=== PATIENT | male | born 1960 | race Caucasian/White ===

== ENCOUNTER 2022-01-17 21:17 | Inpatient (IN) | payer MEDICAID ==
[~2022-01-17] VITALS: Ht 180.3 cm; Wt 85.0 kg
[~2022-01-17 21:17] MED LIST: GABA-1216 PO
[2022-01-17] MEDS ORDERED: POVIDONE-IODINE 10% 120 ML SOLUTION TP ONE (22:30)
[2022-01-17] MEDS ORDERED: SODIUM CHLORIDE 0.9% 1,000 ML IV ONE (22:30)
[2022-01-17 22:59] LABS: COVID AG,FIA SOURCE NASAL SWAB
[2022-01-17 23:02] LABS: APPEARANCE,URINE CLEAR (CLEAR); BILIRUBIN,URINE NEGATIVE (NEGATIVE); GLUCOSE, URINE (UA) NEGATIVE (NEGATIVE); LEUKOCYTE ESTERASE ,URINE NEGATIVE (NEGATIVE); NITRATE,URINE NEGATIVE (NEGATIVE); OCCULT BLOOD,URINE NEGATIVE (NEGATIVE); PH,URINE 5.5 (5.0-8.0); PROTEIN,URINE TRACE mg/dL (NEGATIVE); SPECIFIC GRAVITIY, URINE 1.018 (1.003-1.030); UROBILINOGEN,URINE <=1.0 mg/dL (<=1.0)
[2022-01-17] MEDS ORDERED: VANCOMYCIN 1GM/WATER(PEG/NADA) 200 ML IV ONE (23:15)
[2022-01-17 23:35] LABS: BASOPHILS % (AUTO) 0.5 % (0.0-2.0); EOSINOPHILS % (AUTO) 0.4 % (1.0-6.0); HEMATOCRIT 38.2 % (41-53); HEMOGLOBIN 12.7 g/dL (13.5-17.5); LYMPHOCYTES # (AUTO) 1.4 K/uL (1.0-4.8); LYMPHOCYTES % (AUTO) 11.5 % (22.0-44.0); MEAN CORPUSCULAR HEMOGLOBIN 31.3 pg (26.0-34.0); MEAN CORPUSCULAR HGB CONC 33.2 G/dL (31.0-37.0); MEAN CORPUSCULAR VOLUME 94 fL (80-100); MONOCYTES # (AUTO) 1.2 K/uL (0.1-1.0); MONOCYTES % (AUTO) 9.3 % (2.0-9.0); NEUTROPHILS # (AUTO) 9.8 K/uL (1.8-7.7); NEUTROPHILS % (AUTO) 78.3 % (40.0-70.0); PLATELET COUNT (AUTO) 138 K/uL (150-450); RED BLOOD CELL COUNT(AUTO) 4.05 MIL/uL (4.50-5.90); RED CELL DISTRIBUTION WIDTH 14.6 % (11.5-14.5)
[2022-01-17 23:42] LABS: ANION GAP 11 mmol/L (8-16); CALCIUM, TOTAL 8.2 mg/dL (8.8-10.5); CARBON DIOXIDE 24 mmol/L (22-29); CHLORIDE 101 mmol/L (98-107); CREATININE 0.58 mg/dL (0.60-1.30); GLUCOSE,RANDOM 113 mg/dL (70-110); POTASSIUM 4.4 mmol/L (3.5-5.1); SODIUM SERUM 136 mmol/L (136-145); UREA NITROGEN, BLOOD 8 mg/dL (7-18)
[2022-01-17 23:43] LABS: GLOMERULAR FILTR. RATE CALC > 60 mL/min (>60)
[2022-01-17 23:48] LABS: ALANINE AMINOTRANSFERASE 27 U/L (12-78); ALBUMIN 3.1 g/dL (3.4-5.0); ALKALINE PHOSPHATASE 111 U/L (46-116); ASPARTATE AMINOTRANSFERASE 36 U/L (15-37); BILIRUBIN,TOTAL 0.4 mg/dL (0.1-1.0); TOTAL PROTEIN, SERUM 7.7 g/dL (6.4-8.2)
[2022-01-17 23:49] LABS: PROTHROMBIN TIME 10.5 SEC (9.4-11.6)
[2022-01-17 23:53] LABS: LACTIC ACID 2.1 mmol/L (0.4-2.0)
[2022-01-18] MEDS ORDERED: ONDANSETRON HCL 4 MG/2 ML VIAL IVP PRN
[2022-01-18] MEDS: CefTRIAXone 1 GM/DEXTROSE 50 ML IV SCH (00:17)
[2022-01-18] MEDS: HYDROCODONE/ACETAMINOPHEN 5-325 MG TABLET PO PRN ×2 (00:17→05:24)
[2022-01-18] MEDS: RINGERS SOLUTION,LACTATED 1,000 ML IV SCH ×3 (00:18→20:11)
[2022-01-18] MEDS: HEPARIN SODIUM,PORCINE 5,000 UNITS/ML VIAL SQ SCH ×3 (00:18→17:13)
[2022-01-18 00:27] LABS: D-DIMER 0.35 mg/L FEU (0.00-0.50)
[2022-01-18] MEDS ORDERED: SODIUM CHLORIDE 0.9% 500 ML IV ONE (05:30)
[2022-01-18] MEDS ORDERED: VANCOMYCIN HCL 1.25 GM in DEXTROSE 5%-WATER 250 ML IV SCH ×5 (05:30→08:00)
[2022-01-18 05:44] VITALS: BP 127/68
[2022-01-18] MEDS: MORPHINE SULFATE 4 MG/ML SYRINGE IVP PRN (06:55)
[2022-01-18] MEDS ORDERED: IOHEXOL 350 MG/ML 100 ML VIAL ONE (07:21)
[2022-01-18] MEDS ORDERED: SODIUM CHLORIDE 0.9% 100 ML ONE (07:21)
[2022-01-18 08:48] LABS: ANION GAP 12 mmol/L (8-16); CALCIUM, TOTAL 7.9 mg/dL (8.8-10.5); CARBON DIOXIDE 22 mmol/L (22-29); CHLORIDE 102 mmol/L (98-107); CREATININE 0.53 mg/dL (0.60-1.30); GLOMERULAR FILTR. RATE CALC > 60 mL/min (>60); GLUCOSE,RANDOM 86 mg/dL (70-110); POTASSIUM 3.9 mmol/L (3.5-5.1); SODIUM SERUM 136 mmol/L (136-145); UREA NITROGEN, BLOOD 6 mg/dL (7-18)
[2022-01-18] MEDS ORDERED: GABAPENTIN 100 MG CAPSULE PO SCH (09:00)
[2022-01-18] MEDS: VANCOMYCIN HCL 1.25 GM in DEXTROSE 5%-WATER 250 ML IV SCH ×2 (09:55→17:13)
[2022-01-18] MEDS: GABAPENTIN 100 MG CAPSULE PO SCH ×3 (09:56→20:05)
[2022-01-18 11:07] LABS: BASOPHILS % (AUTO) 0.6 % (0.0-2.0); EOSINOPHILS % (AUTO) 0.4 % (1.0-6.0); HEMATOCRIT 33.6 % (41-53); HEMOGLOBIN 11.3 g/dL (13.5-17.5); LYMPHOCYTES % (AUTO) 18.7 % (22.0-44.0); MEAN CORPUSCULAR HGB CONC 33.6 G/dL (31.0-37.0); MEAN CORPUSCULAR VOLUME 95 fL (80-100); MONOCYTES # (AUTO) 1.6 K/uL (0.1-1.0); NEUTROPHILS # (AUTO) 7.1 K/uL (1.8-7.7); NEUTROPHILS % (AUTO) 65.3 % (40.0-70.0); PLATELET COUNT (AUTO) 122 K/uL (150-450); RED BLOOD CELL COUNT(AUTO) 3.52 MIL/uL (4.50-5.90); RED CELL DISTRIBUTION WIDTH 14.9 % (11.5-14.5)
[2022-01-18 11:49] VITALS: BP 127/64
[2022-01-18] MEDS: ASPIRIN 81 MG CHEWABLE TABLET PO SCH (12:06)
[2022-01-18] MEDS: ATORVASTATIN CALCIUM 20 MG TABLET PO SCH (12:06)
[2022-01-18 16:06] VITALS: BP 113/73
[2022-01-18 19:57] VITALS: BP 149/72
[2022-01-18] MEDS: ACETAMINOPHEN 325 MG TABLET PO PRN (20:05)
[2022-01-19] MEDS: HEPARIN SODIUM,PORCINE 5,000 UNITS/ML VIAL SQ SCH ×3 (00:03→16:13)
[2022-01-19] MEDS: CefTRIAXone 1 GM/DEXTROSE 50 ML IV SCH (00:03)
[2022-01-19] MEDS: ACETAMINOPHEN 325 MG TABLET PO PRN (00:03)
[2022-01-19 00:11] VITALS: BP 118/82
[2022-01-19] MEDS: HYDROCODONE/ACETAMINOPHEN 5-325 MG TABLET PO PRN ×4 (00:14→20:24)
[2022-01-19] MEDS: VANCOMYCIN HCL 1.25 GM in DEXTROSE 5%-WATER 250 ML IV SCH ×3 (00:35→16:12)
[2022-01-19 04:02] VITALS: BP 152/78
[2022-01-19 06:35] LABS: VANCOMYCIN,RANDOM 18.3 mcg/mL (25.0-50.0)
[2022-01-19 07:11] VITALS: BP 132/84
[2022-01-19 07:48] LABS: ANION GAP 7 mmol/L (8-16); CARBON DIOXIDE 28 mmol/L (22-29); CHLORIDE 99 mmol/L (98-107); CREATININE 0.71 mg/dL (0.60-1.30); GLUCOSE,RANDOM 99 mg/dL (70-110); POTASSIUM 3.4 mmol/L (3.5-5.1); SODIUM SERUM 134 mmol/L (136-145); UREA NITROGEN, BLOOD 5 mg/dL (7-18)
[2022-01-19 07:52] LABS: GLOMERULAR FILTR. RATE CALC > 60 mL/min (>60)
[2022-01-19] MEDS: ATORVASTATIN CALCIUM 20 MG TABLET PO SCH (08:45)
[2022-01-19] MEDS: GABAPENTIN 100 MG CAPSULE PO SCH ×3 (08:45→20:24)
[2022-01-19] MEDS: ASPIRIN 81 MG CHEWABLE TABLET PO SCH (08:45)
[2022-01-19] MEDS: RINGERS SOLUTION,LACTATED 1,000 ML IV SCH (08:47)
[2022-01-19] MEDS ORDERED: POTASSIUM CHLORIDE 20 MEQ ER TABLET PO PRN (11:00)
[2022-01-19] MEDS ORDERED: POTASSIUM CHL 10 MEQ/WATER 50 ML IV PRN (11:00)
[2022-01-19 11:52] VITALS: BP 145/88
[2022-01-19] MEDS: SILVER SULFADIAZINE 1% 25 GM CREAM TP SCH (12:09)
[2022-01-19] MEDS: NYSTATIN 30 GM CREAM TP SCH (12:09)
[2022-01-19] MEDS: MORPHINE SULFATE 4 MG/ML SYRINGE IVP PRN (12:09)
[2022-01-19 15:57] VITALS: BP 132/80
[2022-01-19 19:22] VITALS: BP 141/82
[2022-01-20 00:13] VITALS: BP 145/93
[2022-01-20] MEDS: CefTRIAXone 1 GM/DEXTROSE 50 ML IV SCH ×2 (00:30→23:59)
[2022-01-20] MEDS: HEPARIN SODIUM,PORCINE 5,000 UNITS/ML VIAL SQ SCH ×3 (00:31→16:02)
[2022-01-20] MEDS: VANCOMYCIN HCL 1.25 GM in DEXTROSE 5%-WATER 250 ML IV SCH ×3 (01:18→16:02)
[2022-01-20] MEDS: RINGERS SOLUTION,LACTATED 1,000 ML IV SCH ×3 (03:56→17:00)
[2022-01-20 04:56] VITALS: BP 151/94
[2022-01-20 07:10] LABS: ANION GAP 8 mmol/L (8-16); CALCIUM, TOTAL 8.3 mg/dL (8.8-10.5); CARBON DIOXIDE 25 mmol/L (22-29); CHLORIDE 100 mmol/L (98-107); CREATININE 0.65 mg/dL (0.60-1.30); GLUCOSE,RANDOM 97 mg/dL (70-110); POTASSIUM 3.6 mmol/L (3.5-5.1); SODIUM SERUM 133 mmol/L (136-145); UREA NITROGEN, BLOOD 5 mg/dL (7-18)
[2022-01-20 07:43] LABS: GLOMERULAR FILTR. RATE CALC > 60 mL/min (>60)
[2022-01-20 08:02] VITALS: BP 163/87
[2022-01-20] MEDS: HYDROCODONE/ACETAMINOPHEN 5-325 MG TABLET PO PRN ×3 (08:38→20:00)
[2022-01-20] MEDS: ATORVASTATIN CALCIUM 20 MG TABLET PO SCH (09:33)
[2022-01-20] MEDS: ASPIRIN 81 MG CHEWABLE TABLET PO SCH (09:33)
[2022-01-20] MEDS: GABAPENTIN 100 MG CAPSULE PO SCH ×3 (09:33→20:00)
[2022-01-20 11:06] VITALS: BP 147/85
[2022-01-20] MEDS: NYSTATIN 30 GM CREAM TP SCH (15:16)
[2022-01-20] MEDS: SILVER SULFADIAZINE 1% 25 GM CREAM TP SCH (15:16)
[2022-01-20 15:26] VITALS: BP 160/86
[2022-01-20] MEDS ORDERED: HYDROCODONE/ACETAMINOPHEN 5-325 MG TABLET PO ONE (16:00)
[2022-01-20 20:00] VITALS: BP 138/79
[2022-01-21] VITALS: BP 160/85
[2022-01-21] MEDS: VANCOMYCIN HCL 1.25 GM in DEXTROSE 5%-WATER 250 ML IV SCH ×3 (00:41→15:58)
[2022-01-21] MEDS: RINGERS SOLUTION,LACTATED 1,000 ML IV SCH (02:30)
[2022-01-21] MEDS: HYDROCODONE/ACETAMINOPHEN 5-325 MG TABLET PO PRN ×4 (02:41→23:38)
[2022-01-21 04:00] VITALS: BP 151/92
[2022-01-21 06:32] LABS: ANION GAP 7 mmol/L (8-16); CALCIUM, TOTAL 8.5 mg/dL (8.8-10.5); CARBON DIOXIDE 27 mmol/L (22-29); CHLORIDE 102 mmol/L (98-107); CREATININE 0.66 mg/dL (0.60-1.30); GLUCOSE,RANDOM 97 mg/dL (70-110); POTASSIUM 3.7 mmol/L (3.5-5.1); SODIUM SERUM 136 mmol/L (136-145); UREA NITROGEN, BLOOD 7 mg/dL (7-18)
[2022-01-21 06:38] LABS: GLOMERULAR FILTR. RATE CALC > 60 mL/min (>60)
[2022-01-21 08:12] VITALS: BP 151/99
[2022-01-21] MEDS: ASPIRIN 81 MG CHEWABLE TABLET PO SCH (09:16)
[2022-01-21] MEDS: HEPARIN SODIUM,PORCINE 5,000 UNITS/ML VIAL SQ SCH ×4 (09:17→23:42)
[2022-01-21] MEDS: ATORVASTATIN CALCIUM 20 MG TABLET PO SCH (09:17)
[2022-01-21] MEDS: GABAPENTIN 100 MG CAPSULE PO SCH ×3 (09:17→20:52)
[2022-01-21 11:16] VITALS: BP 122/78
[2022-01-21] MEDS: NYSTATIN 30 GM CREAM TP SCH (15:47)
[2022-01-21] MEDS: SILVER SULFADIAZINE 1% 25 GM CREAM TP SCH (15:47)
[2022-01-21 16:00] VITALS: BP 133/65
[2022-01-21 19:19] VITALS: BP 144/84
[2022-01-21] MEDS: CefTRIAXone 1 GM/DEXTROSE 50 ML IV SCH (23:38)
[2022-01-22 00:40] VITALS: BP 148/89
[2022-01-22] MEDS: VANCOMYCIN HCL 1.25 GM in DEXTROSE 5%-WATER 250 ML IV SCH ×4 (00:53→22:30)
[2022-01-22 04:51] VITALS: BP 129/93
[2022-01-22 07:41] LABS: ANION GAP 7 mmol/L (8-16); CALCIUM, TOTAL 8.4 mg/dL (8.8-10.5); CARBON DIOXIDE 27 mmol/L (22-29); CHLORIDE 101 mmol/L (98-107); CREATININE 0.64 mg/dL (0.60-1.30); GLUCOSE,RANDOM 94 mg/dL (70-110); POTASSIUM 3.7 mmol/L (3.5-5.1); SODIUM SERUM 135 mmol/L (136-145); UREA NITROGEN, BLOOD 7 mg/dL (7-18); VANCOMYCIN,RANDOM 18.6 mcg/mL (25.0-50.0)
[2022-01-22 07:42] LABS: GLOMERULAR FILTR. RATE CALC > 60 mL/min (>60)
[2022-01-22 07:43] VITALS: BP 150/88
[2022-01-22] MEDS: ATORVASTATIN CALCIUM 20 MG TABLET PO SCH (09:07)
[2022-01-22] MEDS: HEPARIN SODIUM,PORCINE 5,000 UNITS/ML VIAL SQ SCH ×2 (09:08→16:15)
[2022-01-22] MEDS: GABAPENTIN 100 MG CAPSULE PO SCH ×3 (09:08→21:35)
[2022-01-22] MEDS: ASPIRIN 81 MG CHEWABLE TABLET PO SCH (09:08)
[2022-01-22] MEDS: HYDROCODONE/ACETAMINOPHEN 5-325 MG TABLET PO PRN ×3 (09:09→21:36)
[2022-01-22] MEDS: NYSTATIN 30 GM CREAM TP SCH (09:15)
[2022-01-22] MEDS: SILVER SULFADIAZINE 1% 25 GM CREAM TP SCH (09:16)
[2022-01-22 11:53] VITALS: BP 144/80
[2022-01-22 15:41] VITALS: BP 133/81
[2022-01-22 21:22] VITALS: BP 137/83
[2022-01-22] MEDS ORDERED: SODIUM CHLORIDE 0.9% 250 ML IV ONE (21:55)
[2022-01-23] VITALS (7 sets, daily range): BP systolic 128–150; BP diastolic 70–111
[2022-01-23] MEDS: CefTRIAXone 1 GM/DEXTROSE 50 ML IV SCH ×3 (01:32→23:48)
[2022-01-23] MEDS: HEPARIN SODIUM,PORCINE 5,000 UNITS/ML VIAL SQ SCH ×5 (01:32→23:48)
[2022-01-23 06:24] LABS: ANION GAP 4 mmol/L (8-16); CALCIUM, TOTAL 8.6 mg/dL (8.8-10.5); CARBON DIOXIDE 32 mmol/L (22-29); CHLORIDE 102 mmol/L (98-107); CREATININE 0.78 mg/dL (0.60-1.30); GLUCOSE,RANDOM 96 mg/dL (70-110); POTASSIUM 4.7 mmol/L (3.5-5.1); SODIUM SERUM 138 mmol/L (136-145); UREA NITROGEN, BLOOD 7 mg/dL (7-18)
[2022-01-23 06:26] LABS: GLOMERULAR FILTR. RATE CALC > 60 mL/min (>60)
[2022-01-23] MEDS: VANCOMYCIN HCL 1.25 GM in DEXTROSE 5%-WATER 250 ML IV SCH ×4 (07:05→23:47)
[2022-01-23] MEDS: ATORVASTATIN CALCIUM 20 MG TABLET PO SCH (08:42)
[2022-01-23] MEDS: ASPIRIN 81 MG CHEWABLE TABLET PO SCH (08:42)
[2022-01-23] MEDS: GABAPENTIN 100 MG CAPSULE PO SCH ×3 (08:43→21:11)
[2022-01-23] MEDS: HYDROCODONE/ACETAMINOPHEN 5-325 MG TABLET PO PRN ×3 (08:44→21:11)
[2022-01-23] MEDS: NYSTATIN 30 GM CREAM TP SCH (08:45)
[2022-01-23] MEDS: SILVER SULFADIAZINE 1% 25 GM CREAM TP SCH (08:45)
[2022-01-24] MEDS: HYDROCODONE/ACETAMINOPHEN 5-325 MG TABLET PO PRN ×3 (03:05→16:43)
[2022-01-24 04:41] VITALS: BP 145/89
[2022-01-24 06:01] LABS: ANION GAP 7 mmol/L (8-16); CALCIUM, TOTAL 8.4 mg/dL (8.8-10.5); CARBON DIOXIDE 27 mmol/L (22-29); CHLORIDE 104 mmol/L (98-107); GLUCOSE,RANDOM 100 mg/dL (70-110); POTASSIUM 3.5 mmol/L (3.5-5.1); SODIUM SERUM 138 mmol/L (136-145); UREA NITROGEN, BLOOD 8 mg/dL (7-18)
[2022-01-24 06:02] LABS: GLOMERULAR FILTR. RATE CALC > 60 mL/min (>60)
[2022-01-24] MEDS: VANCOMYCIN HCL 1.25 GM in DEXTROSE 5%-WATER 250 ML IV SCH ×2 (06:12→14:34)
[2022-01-24 07:22] VITALS: BP 146/73
[2022-01-24] MEDS: ATORVASTATIN CALCIUM 20 MG TABLET PO SCH (09:32)
[2022-01-24] MEDS: HEPARIN SODIUM,PORCINE 5,000 UNITS/ML VIAL SQ SCH ×2 (09:32→16:33)
[2022-01-24] MEDS: GABAPENTIN 100 MG CAPSULE PO SCH ×2 (09:32→16:33)
[2022-01-24] MEDS: ASPIRIN 81 MG CHEWABLE TABLET PO SCH (09:33)
[2022-01-24] MEDS: NYSTATIN 30 GM CREAM TP SCH (09:36)
[2022-01-24] MEDS: SILVER SULFADIAZINE 1% 25 GM CREAM TP SCH (09:36)
[2022-01-24] MEDS ORDERED: CIPROFLOXACIN 400 MG/D5% WATER 200 ML IV SCH (11:00)
[2022-01-24 12:00] VITALS: BP 136/78
[2022-01-24] MEDS ORDERED: ASPI81TA87 PO (14:01)
[2022-01-24] MEDS ORDERED: GABA-1216 PO (14:02)
[2022-01-24] MEDS ORDERED: ATOR20TA65 PO (14:02)
[2022-01-24] MEDS ORDERED: NYST30CR9 TP (14:03)
[2022-01-24] MEDS ORDERED: SILV20CR11 TP (14:04)
[2022-01-24 15:52] VITALS: BP 143/85
== END 2022-01-24 17:20 | DRG 720 ==
LOC: EMS 21:17 → 5S 01-18 03:53 → EMS 01-18 04:39
PROVIDERS: ADMIT Internal Medicine; ATTEND Internal Medicine
DX: A41.9 Sepsis, unspecified organism (principal); D69.6 Thrombocytopenia, unspecified; E44.0 Moderate protein-calorie malnutrition; E83.51 Hypocalcemia; L03.115 Cellulitis of right lower limb; L03.116 Cellulitis of left lower limb; I10 Essential (primary) hypertension; D64.9 Anemia, unspecified; I73.9 Peripheral vascular disease, unspecified; I87.2 Venous insufficiency (chronic) (peripheral); I87.8 Other specified disorders of veins; Z96.659 Presence of unspecified artificial knee joint; G62.9 Polyneuropathy, unspecified; Z20.822 Contact with and (suspected) exposure to COVID-19; Z59.00 Homelessness unspecified; Z79.899 Other long term (current) drug therapy; Z68.26 Body mass index [BMI] 26.0-26.9, adult
CPT/HCPCS: 73701; 80048; 80053; 80202; 81003; 83605; 84132; 85025; 85379; 85610; 85730; 87040; 87070; 87186; 87205; 93005; 93925; 97110; 97116; 97162; 97530; 99285; J0696; J0744; J1644; J2270; J3370; J7030; J7040; J7050; J7060; J7120; Q9967

== ENCOUNTER 2023-11-06 18:44 | Emergency (ER) | payer MEDICARE, MEDICAID ==
[~2023-11-06] VITALS: Ht 170.2 cm; Wt 68.2 kg
[~2023-11-06 18:44] MED LIST changes: +ASPI81TA87 PO; +ATOR20TA65 PO; +NYST30CR9 TP; +SILV20CR11 TP
[2023-11-06 18:58] VITALS: BP 146/84; PULSE 84; RESP 18; TEMP 98; O2SAT 99
[2023-11-06 20:48] LABS: BASOPHILS % (AUTO) 0.7 % (0.0-2.0); EOSINOPHILS % (AUTO) 1.1 % (1.0-6.0); HEMATOCRIT 36.8 % (41-53); LYMPHOCYTES # (AUTO) 1.3 K/uL (1.0-4.8); LYMPHOCYTES % (AUTO) 17.7 % (22.0-44.0); MEAN CORPUSCULAR HEMOGLOBIN 33.3 pg (26.0-34.0); MEAN CORPUSCULAR HGB CONC 32.8 G/dL (31.0-37.0); MEAN CORPUSCULAR VOLUME 102 fL (80-100); MONOCYTES # (AUTO) 1.3 K/uL (0.1-1.0); MONOCYTES % (AUTO) 17.7 % (2.0-9.0); NEUTROPHILS # (AUTO) 4.7 K/uL (1.8-7.7); NEUTROPHILS % (AUTO) 62.8 % (40.0-70.0); PLATELET COUNT (AUTO) 101 K/uL (150-450); RED BLOOD CELL COUNT(AUTO) 3.62 MIL/uL (4.50-5.90); RED CELL DISTRIBUTION WIDTH 20.1 % (11.5-14.5); WHITE BLOOD COUNT (AUTO) 7.5 K/uL (4.5-11.0)
[2023-11-06 20:53] LABS: RBC MORPHOLOGY COMMENT ABNORMAL RBC MORPH
[2023-11-06 20:58] LABS: ANION GAP 12 mmol/L (8-16); CALCIUM, TOTAL 8.1 mg/dL (8.8-10.5); CARBON DIOXIDE 25 mmol/L (22-29); CHLORIDE 102 mmol/L (98-107); CREATININE 0.66 mg/dL (0.60-1.30); GLOMERULAR FILTR. RATE CALC > 60 mL/min (>60); GLUCOSE,RANDOM 112 mg/dL (70-110); POTASSIUM 3.9 mmol/L (3.5-5.1); SODIUM SERUM 139 mmol/L (136-145); UREA NITROGEN, BLOOD 10 mg/dL (7-18)
[2023-11-06 21:23] LABS: ALCOHOL, BLOOD (SERUM) 159 mg/dL (0-10)
[2023-11-07] MEDS: DOXYCYCLINE HYCLATE 100 MG TABLET PO ONE (00:03)
[2023-11-07] MEDS ORDERED: DOXY-354 PO (00:06)
== END 2023-11-07 00:38 | disposition home or self-care (01) ==
LOC: EMS 18:44
DX: L03.116 Cellulitis of left lower limb (principal); L03.115 Cellulitis of right lower limb; F10.129 Alcohol abuse with intoxication, unspecified; I10 Essential (primary) hypertension; Y90.6 Blood alcohol level of 120-199 mg/100 ml
CPT/HCPCS: 99283; 80048; 85025; 36415; G0480

== ENCOUNTER 2024-10-30 16:11 | Inpatient (IN) | payer MEDICARE, MEDICAID ==
[~2024-10-30] VITALS: Ht 177.8 cm; Wt 57.2 kg
[~2024-10-30 16:11] MED LIST changes: +DOXY-354 PO; -NYST30CR9 TP; -SILV20CR11 TP
[2024-10-30 18:20] LABS: PLATELET COUNT (AUTO) 158 K/uL (150-450); RED BLOOD CELL COUNT(AUTO) 5.08 MIL/uL (4.50-5.90); RED CELL DISTRIBUTION WIDTH 22.2 % (11.5-14.5); WHITE BLOOD COUNT (AUTO) 7.5 K/uL (4.5-11.0)
[2024-10-30 18:29] LABS: CALCIUM, TOTAL 8.1 mg/dL (8.8-10.5); CREATININE 0.84 mg/dL (0.60-1.30); GLOMERULAR FILTR. RATE CALC > 60 mL/min (>60); GLUCOSE,RANDOM 94 mg/dL (70-110); SODIUM SERUM 144 mmol/L (136-145); UREA NITROGEN, BLOOD 24 mg/dL (7-18)
[2024-10-30 18:36] LABS: COVID AG,FIA SOURCE NASAL SWAB
[2024-10-30 18:39] LABS: RBC MORPHOLOGY COMMENT ABNORMAL RBC MORPH
[2024-10-30 18:42] LABS: PH,URINE DRUG SCREEN 6.0 (5.0-8.0)
[2024-10-30 18:51] LABS: ALCOHOL, URINE DRUG SCREEN NEGATIVE (NEGATIVE); AMPHET/METH SCREEN,URINE NEGATIVE (NEGATIVE); BARBITURATE SCREEN, URINE NEGATIVE (NEGATIVE); CANNABINOID SCREEN,URINE NEGATIVE (NEGATIVE); COCAINE SCREEN,URINE NEGATIVE (NEGATIVE); METHADONE SCREEN, URINE NEGATIVE (NEGATIVE)
[2024-10-30 18:58] LABS: SARS-COV2 (COVID) ANTIGEN,FIA Negative (Negative)
[2024-10-30 19:14] LABS: INFLUENZA TYPE A NEGATIVE FOR TYPE A (NEGATIVE); INFLUENZA TYPE B NEGATIVE FOR TYPE B (NEGATIVE)
[2024-10-30] MEDS ORDERED: ZOLPIDEM TARTRATE 10 MG TABLET PO PRN (21:15)
[2024-10-31] MEDS: ACETAMINOPHEN 325 MG TABLET PO ONE (03:15)
[2024-10-31 05:26] LABS: PLATELET COUNT (AUTO) 165 K/uL (150-450); RED BLOOD CELL COUNT(AUTO) 5.00 MIL/uL (4.50-5.90); RED CELL DISTRIBUTION WIDTH 22.1 % (11.5-14.5); WHITE BLOOD COUNT (AUTO) 6.6 K/uL (4.5-11.0)
[2024-10-31 05:30] LABS: RBC MORPHOLOGY COMMENT ABNORMAL RBC MORPH
[2024-10-31 05:48] LABS: ASPARTATE AMINOTRANSFERASE 29 U/L (15-37); CALCIUM, TOTAL 8.3 mg/dL (8.8-10.5); CHOL/HDL RATIO 4.3 (4.2-7.3); CREATININE 0.73 mg/dL (0.60-1.30); GLOMERULAR FILTR. RATE CALC > 60 mL/min (>60); GLUCOSE,RANDOM 108 mg/dL (70-110); LDL CHOL (CALC.) 81 mg/dL (0-130); SODIUM SERUM 140 mmol/L (136-145); TOTAL PROTEIN, SERUM 6.9 g/dL (6.4-8.2); UREA NITROGEN, BLOOD 21 mg/dL (7-18)
[2024-10-31 18:59] VITALS: BP 137/101; PULSE 94; RESP 18; TEMP 98.2; O2SAT 100
[2024-10-31 19:05] VITALS: BP 137/101; PULSE 94; RESP 18; TEMP 98.2; O2SAT 100
[2024-10-31] MEDS ORDERED: PNEUMOCOCCAL VACCINE POLYVALENT 0.5 ML SYRINGE [PPSV23] IM. ONE (19:45)
[2024-10-31 20:00] VITALS: BP 129/69; PULSE 70; RESP 18; TEMP 97.5; O2SAT 100
[2024-10-31] MEDS ORDERED: ACETAMINOPHEN 325 MG TABLET PO PRN (20:15)
[2024-10-31] MEDS ORDERED: ONDANSETRON 4 MG TABLET PO PRN (20:15)
[2024-10-31] MEDS ORDERED: LOPERAMIDE HCL 2 MG CAPSULE PO PRN (20:15)
[2024-10-31] MEDS ORDERED: NICOTINE 14 MG/24 HOUR PATCH TD PRN (20:15)
[2024-10-31] MEDS ORDERED: DOCUSATE SODIUM 100 MG CAPSULE PO PRN (20:15)
[2024-10-31] MEDS ORDERED: GuaiFENesin/D-METHORPHAN [SUGAR-FREE] 200-20MG/10 ML SYRUP UDCUP PO PRN (20:15)
[2024-10-31] MEDS ORDERED: MAG HYDROX/ALUMINUM HYD/SIMETH ES 30 ML SUSPENSION UDCUP PO PRN (20:15)
[2024-10-31] MEDS ORDERED: MAGNESIUM HYDROXIDE SUSPENSION 30 ML UDCUP PO PRN (20:15)
[2024-10-31] MEDS ORDERED: ALBUTEROL SULFATE HFA 90 MCG/PUFF 8 GM INHALER IH PRN (20:15)
[2024-10-31] MEDS ORDERED: PETROLATUM,WHITE 28 GM JELLY TP PRN (20:15)
[2024-11-01 08:34] LABS: CHOL/HDL RATIO 4.6 (4.2-7.3); LDL CHOL (CALC.) 87.0 mg/dL (0-130)
[2024-11-01] MEDS: ATORVASTATIN CALCIUM 20 MG TABLET PO SCH (08:58)
[2024-11-01] MEDS: ASPIRIN 81 MG DR TABLET PO SCH (08:58)
[2024-11-01 09:24] VITALS: BP 157/104; PULSE 62; RESP 18; TEMP 97.1; O2SAT 98
[2024-11-01 20:22] VITALS: BP 91/66; PULSE 89; RESP 18; TEMP 97.8; O2SAT 99
[2024-11-02] VITALS (7 sets, daily range): BP systolic 100–156; BP diastolic 74–100; PULSE 65–96; RESP 16–18; TEMP 97.4–98.6; O2SAT 95–100
[2024-11-02] MEDS: ETHYL ALCOHOL 62% ANTISEPTIC NASAL SANITIZER 0.6 ML AMPUL NASAL SCH (09:14)
[2024-11-02] MEDS: IBUPROFEN 400 MG TABLET PO PRN (09:34)
[2024-11-03] VITALS: BP 134/70; PULSE 90; RESP 18; TEMP 97.1; O2SAT 98
[2024-11-03] MEDS: PERTUSS(ACELL),DIPH,TET/PF 0.5 ML SYRINGE [ADULT] IM. ONE (00:44)
[2024-11-03] MEDS: AMOX TR/POT CLAV 875 MG/125 MG TABLET PO SCH (08:27)
[2024-11-03 09:48] VITALS: BP 140/94; PULSE 60; RESP 18; TEMP 97.7; O2SAT 100
[2024-11-03 10:12] VITALS: BP 140/94; PULSE 60; RESP 16; TEMP 97.7; O2SAT 100
[2024-11-03 21:13] VITALS: BP 144/86; PULSE 78; RESP 18; TEMP 97.7; O2SAT 96
[2024-11-04 06:05] VITALS: BP 135/116; PULSE 94; RESP 18; TEMP 97.9; O2SAT 98
[2024-11-04 10:10] VITALS: RESP 18; TEMP 97
[2024-11-04 21:17] VITALS: BP 129/90; RESP 18; TEMP 97.5; O2SAT 99
[2024-11-05 09:39] VITALS: BP 125/98; PULSE 98; RESP 18; TEMP 97.5; O2SAT 95
[2024-11-05 23:06] VITALS: BP 134/90; PULSE 87; RESP 18; TEMP 98.1; O2SAT 97
[2024-11-06 05:00] VITALS: BP 124/108; PULSE 74; RESP 18; TEMP 98.3; O2SAT 100
[2024-11-06 06:06] LABS: GLUCOMETER DEV NAME(LOC) 3E.I 2; GLUCOSE,POINT OF CARE 81 MG/DL (70-110)
[2024-11-06] MEDS ORDERED: BACITRACIN 28 GM OINTMENT TP SCH (09:00)
== END 2024-11-06 07:00 | disposition short-term general hospital (02) | DRG 885 ==
LOC: EMS 16:11 → 3EX 10-31 17:30
PROVIDERS: ADMIT Psychiatry & Neurology Child & Adolescent Psychiatry; ATTEND Psychiatry & Neurology Child & Adolescent Psychiatry
PROC: GZ56ZZZ Individual Psychotherapy, Supportive (ICD-10-PCS; 2024-11-01)
PROC: GZ58ZZZ Individual Psychotherapy, Cognitive-Behavioral (ICD-10-PCS; 2024-11-01)
PROC: GZ52ZZZ Individual Psychotherapy, Cognitive (ICD-10-PCS; principal; 2024-11-02)
DX: F29 Unspecified psychosis not due to a substance or known physiological condition (principal); L03.115 Cellulitis of right lower limb; L03.116 Cellulitis of left lower limb; I10 Essential (primary) hypertension; G62.9 Polyneuropathy, unspecified; I73.9 Peripheral vascular disease, unspecified; S81.812A Laceration without foreign body, left lower leg, initial encounter; Z96.659 Presence of unspecified artificial knee joint; R79.89 Other specified abnormal findings of blood chemistry; E78.5 Hyperlipidemia, unspecified; X58.XXXA Exposure to other specified factors, initial encounter; Z20.822 Contact with and (suspected) exposure to COVID-19; Y93.89 Activity, other specified; Y92.89 Other specified places as the place of occurrence of the external cause; Y99.8 Other external cause status
CPT/HCPCS: 70450; 71045; 72125; 80048; 80053; 80061; 80307; 82962; 83036; 84436; 84443; 85025; 87081; 87804; 90715; 93005; 99285; G0378; G0480; 36415-L1; 36415-TC